=== PATIENT | male | born 1975 | race Two or more races ===

== ENCOUNTER 2022-03-16 23:52 | Emergency (ER) | payer MEDICAID ==
[~2022-03-16] VITALS: Ht 172.7 cm; Wt 106.6 kg
--- NOTE | 2022-03-17 00:42 | NUR ---
BIBS. TO ER BED 19. AAOX4. NOT IN RESP DISTRESS, BREATHING EVEN AND UNLABORED. AMBULATORY. COME IN FOR COUGH AND SORETHROAT. AWITING MD FOR BREANNEAL
--- NOTE | 2022-03-17 02:32 | NUR ---
FOLLOWED WITH FANI AND SPOKE WITH ISAIAH. RESULT WILL BE IN 50 MIN.
--- NOTE | 2022-03-17 02:57 | NUR ---
FOLLOWED UP WITH LAB REGARDING STREP RESULT.
--- NOTE | 2022-03-17 03:24 | NUR ---
F/U WITH LAB ABOUT RAPID STREP.
[2022-03-17] MEDS ORDERED: BENZ-13 PO (03:50)
[2022-03-17] MEDS ORDERED: P-EP-92 PO (03:50)
--- NOTE | 2022-03-17 03:57 | NUR ---
Patient discharged to home in stable condition. Written and verbal after care instructions given. Patient verbalizes understanding of instruction. Pt ambulatory with a steady gait
[2022-03-17 03:58] VITALS: BP 145/85
== END 2022-03-17 03:59 | disposition home or self-care (01) ==
LOC: ER 03-17 00:01
DX: R05.3 Chronic cough (principal); R09.82 Postnasal drip; R03.0 Elevated blood-pressure reading, without diagnosis of hypertension; Z20.822 Contact with and (suspected) exposure to COVID-19
CPT/HCPCS: 71045; 87070; 87426; 87880; 99284; C9803; 86403-TC